=== PATIENT | female | born 1965 | race Caucasian/White ===

== ENCOUNTER 2019-10-13 05:52 | Day surgery (SDC) | payer BC ==
[2019-10-12 16:56] LABS: BASOPHILS % (AUTO) 0.6 % (0-1); EOSINOPHILS # (AUTO) 0.2 X10'3 (0-0.9); EOSINOPHILS % (AUTO) 2.4 % (0-6); HEMATOCRIT 42.1 % (35.0-45.0); HEMOGLOBIN 14.6 g/dl (12.0-16.0); LYMPHOCYTES # (AUTO) 3.1 X10'3 (1.1-4.8); MEAN CORPUSCULAR HEMOGLOBIN 29.4 PG (27.0-31.0); MEAN CORPUSCULAR HGB CONC 34.7 g/dL (33.0-36.5); MEAN CORPUSCULAR VOLUME 84.9 FL (78-98); MONOCYTES # (AUTO) 0.6 X10'3 (0-0.9); MONOCYTES % (AUTO) 7.2 % (2-12); NEUTROPHILS # (AUTO) 3.7 X10'3 (1.8-7.7); NEUTROPHILS % (AUTO) 48.8 % (42-75); PLATELET COUNT 292 X10'3 (140-440); RED BLOOD COUNT 4.96 X10'6 (4.20-5.60); RED CELL DISTRIBUTION WIDTH 13.1 % (11.5-14.5); WHITE BLOOD COUNT 7.7 X10'3 (4.5-11.0)
[2019-10-12 17:06] LABS: ANION GAP 4 (8-16); BLOOD UREA NITROGEN 13 MG/DL (7-18); BUN/CREATININE RATIO 19.7 (6.6-38.0); CHLORIDE 108 MMOL/L (99-107); CREATININE 0.66 MG/DL (0.40-0.90); GLUCOSE 93 MG/DL (70-104); POTASSIUM 3.9 MMOL/L (3.5-5.1); SODIUM 143 MMOL/L (135-145); eGFR > 90 ML/MIN
[2019-10-12 17:09] LABS: PARTIAL THROMBOPLASTIN TIME 28 SECONDS (22-32)
[~2019-10-13] VITALS: Ht 162.6 cm; Wt 114.1 kg
[2019-10-13] VITALS (12 sets, daily range): BP systolic 112–127; BP diastolic 69–81
[~2019-10-13 05:52] MED LIST: CHOL100010 PO; DEXL60CA3 PO; MACROBID PO; METF500T20 PO; TRAM50TA2 PO; ZOC40T PO; ZOF4T PO
[2019-10-13] MEDS ORDERED: diphenhydrAMINE 25mg capsule PO PRN (06:20)
[2019-10-13] MEDS ORDERED: LORazepam 0.5 MG tablet PO PRN (06:20)
[2019-10-13] MEDS ORDERED: normal saline 1,000 ML IV SCH (06:20)
[2019-10-13] MEDS ORDERED: LIDOcaine/PRILOcaine 5gm cream TP ONE (06:20)
[2019-10-13] MEDS ORDERED: KEP500T PO (06:31)
[2019-10-13] MEDS ORDERED: ATOR20TA PO (06:32)
[2019-10-13] MEDS ORDERED: LACO100T2 PO (06:33)
[2019-10-13] MEDS ORDERED: pneumococcal 23-VAL P-sac vacc 25 mcg/0.5ml vial IMVAC ONE (07:30)
[2019-10-13] MEDS ORDERED: nitroGLYCERIN-Tridil 50MG/D5W 250 ML IV ONE (07:38)
[2019-10-13] MEDS ORDERED: midazolam 2 mg/2 ml injection ONE ×2 (07:39→08:34)
[2019-10-13] MEDS ORDERED: iohexol 350 MG/ML 50ML vial IV ONE (07:39)
[2019-10-13] MEDS ORDERED: fentaNYL/PF 50MCG/1 ML 2ML syringe ONE (07:39)
[2019-10-13] MEDS ORDERED: verapamil 2.5 mg/ml inj IV ONE (07:39)
[2019-10-13] MEDS ORDERED: heparin 1,000unit/ml 10ml vial 10 ML ONE (07:39)
[2019-10-13] MEDS ORDERED: LIDOcaine 1% (10mg/ml)w/preservative injection 20ml MDV ONE (07:39)
[2019-10-13] MEDS ORDERED: iohexol 350MG/ML 100ml bottle IV ONE (07:39)
[2019-10-13] MEDS ORDERED: normal saline 1000ml 1,000 ML IV SCH (09:25)
[2019-10-13] MEDS ORDERED: HYDROcodone/acetaminophen 5mg/325mg tablet PO PRN (09:25)
[2019-10-13] MEDS ORDERED: morphine 4 MG/ML inj SYRINge IV PRN (09:25)
[2019-10-13] MEDS ORDERED: HYDROcodone/acetaminophen 10/325mg tab PO PRN (09:25)
== END 2019-10-13 13:50 | disposition home or self-care (01) ==
LOC: SSTAY O 05:52
PROVIDERS: ATTEND Internal Medicine Cardiovascular Disease
DX: R94.39 Abnormal result of other cardiovascular function study (principal); R06.02 Shortness of breath; I25.10 Atherosclerotic heart disease of native coronary artery without angina pectoris; E78.5 Hyperlipidemia, unspecified; G47.30 Sleep apnea, unspecified; E55.9 Vitamin D deficiency, unspecified; D64.9 Anemia, unspecified; K21.9 Gastro-esophageal reflux disease without esophagitis; G40.802 Other epilepsy, not intractable, without status epilepticus; E66.9 Obesity, unspecified; Z68.41 Body mass index [BMI] 40.0-44.9, adult; Z98.890 Other specified postprocedural states; Z90.49 Acquired absence of other specified parts of digestive tract; Z88.2 Allergy status to sulfonamides; Z88.0 Allergy status to penicillin
CPT/HCPCS: 36415; 80048; 85025; 85610; 85730; 93005; 93458; 99152; 99153; C1769; C1894; J1644; J2001; J2250; J3010; Q9967; A5120; A6258; J3490

== ENCOUNTER 2022-06-18 16:59 | Emergency (ER) | payer BC ==
[~2022-06-18] VITALS: Ht 162.6 cm; Wt 116.4 kg
[~2022-06-18 16:59] MED LIST changes: +ATOR20TA PO; -CHOL100010 PO; +KEP500T PO; +LACO100T2 PO; -MACROBID PO; -METF500T20 PO; -TRAM50TA2 PO; -ZOC40T PO; -ZOF4T PO
[2022-06-18 18:44] LABS: BASOPHILS # (AUTO) 0.1 X10'3 (0-0.2); BASOPHILS % (AUTO) 0.7 % (0-1); EOSINOPHILS # (AUTO) 0.2 X10'3 (0-0.9); EOSINOPHILS % (AUTO) 2.3 % (0-6); HEMATOCRIT 43.5 % (35.0-45.0); HEMOGLOBIN 14.8 g/dl (12.0-16.0); LYMPHOCYTES # (AUTO) 2.5 X10'3 (1.1-4.8); LYMPHOCYTES % (AUTO) 36.9 % (21-51); MEAN CORPUSCULAR HEMOGLOBIN 29.7 PG (27.0-31.0); MEAN CORPUSCULAR HGB CONC 34.1 g/dL (33.0-36.5); MEAN CORPUSCULAR VOLUME 87.1 FL (78-98); MEAN PLATELET VOLUME 7.4 FL (7.4-10.4); MONOCYTES # (AUTO) 0.5 X10'3 (0-0.9); NEUTROPHILS # (AUTO) 3.6 X10'3 (1.8-7.7); NEUTROPHILS % (AUTO) 53.1 % (42-75); PLATELET COUNT 274 X10'3 (140-440); RED BLOOD COUNT 4.99 X10'6 (4.20-5.60); RED CELL DISTRIBUTION WIDTH 12.8 % (11.5-14.5); WHITE BLOOD COUNT 6.9 X10'3 (4.5-11.0)
[2022-06-18 19:01] LABS: ANION GAP 4 (8-16); BILIRUBIN,TOTAL 0.6 MG/DL (0.1-1.0); BLOOD UREA NITROGEN 14 MG/DL (7-18); BUN/CREATININE RATIO 18.4 (6.6-38.0); CALCIUM 9.4 MG/DL (8.5-10.1); CHLORIDE 105 MMOL/L (99-107); CREATININE 0.76 MG/DL (0.40-0.90); GLUCOSE 98 MG/DL (70-104); POTASSIUM 3.9 MMOL/L (3.5-5.1); SODIUM 139 MMOL/L (135-145); TOTAL CARBON DIOXIDE 29.9 MMOL/L (24-32); eGFR 79 ML/MIN
[2022-06-18 19:02] LABS: ALANINE AMINOTRANSFERASE 35 U/L (12-78); ALBUMIN/GLOBULIN RATIO 1.1 (1.1-1.5); ALKALINE PHOSPHATASE 86 IU/L (46-116); ASPARTATE AMINO TRANSFERASE 22 U/L (10-37); TOTAL PROTEIN 7.5 G/DL (6.4-8.2)
[2022-06-18 23:06] VITALS: BP 122/81
== END 2022-06-18 23:41 | disposition home or self-care (01) ==
LOC: ER 17:00
DX: R07.9 Chest pain, unspecified (principal); J45.909 Unspecified asthma, uncomplicated; K21.9 Gastro-esophageal reflux disease without esophagitis; Z88.0 Allergy status to penicillin; Z88.1 Allergy status to other antibiotic agents; Z79.899 Other long term (current) drug therapy
CPT/HCPCS: 36415; 71045; 80053; 83880; 84484; 85025; 93005; 99285

== ENCOUNTER 2023-09-29 04:47 | Emergency (ER) | payer BC ==
[~2023-09-29] VITALS: Ht 162.6 cm; Wt 119.9 kg
[2023-09-29 04:59] VITALS: TEMP 98.3
[2023-09-29] MEDS ORDERED: ondansetron 4mg rapidly disintigrating tab PO ONE (05:25)
[2023-09-29] MEDS ORDERED: aspirin 325mg tablet PO ONE (05:25)
[2023-09-29] MEDS ORDERED: mag hydrox/Alum hydrox/simeth 30ml oral suspension PO ONE (05:25)
[2023-09-29] MEDS ORDERED: ESOM40CA54 PO (05:58)
[2023-09-29] MEDS ORDERED: FAMO20TA8 PO (05:58)
[2023-09-29 06:01] LABS: BASOPHILS % (AUTO) 0.5 % (0-1); EOSINOPHILS # (AUTO) 0.1 X10'3 (0-0.9); HEMATOCRIT 41.6 % (35.0-45.0); HEMOGLOBIN 14.4 g/dl (12.0-16.0); LYMPHOCYTES # (AUTO) 2.1 X10'3 (1.1-4.8); LYMPHOCYTES % (AUTO) 33.2 % (21-51); MEAN CORPUSCULAR HGB CONC 34.5 g/dL (33.0-36.5); MEAN CORPUSCULAR VOLUME 86.8 FL (78-98); MEAN PLATELET VOLUME 7.2 FL (7.4-10.4); MONOCYTES # (AUTO) 0.5 X10'3 (0-0.9); MONOCYTES % (AUTO) 7.2 % (2-12); NEUTROPHILS # (AUTO) 3.6 X10'3 (1.8-7.7); NEUTROPHILS % (AUTO) 57.1 % (42-75); PLATELET COUNT 225 X10'3 (140-440); RED BLOOD COUNT 4.79 X10'6 (4.20-5.60); WHITE BLOOD COUNT 6.3 X10'3 (4.5-11.0)
[2023-09-29 06:11] LABS: ALANINE AMINOTRANSFERASE 32 U/L (12-78); ALBUMIN 3.7 G/DL (3.4-5.0); ALBUMIN/GLOBULIN RATIO 1.1 (1.1-1.5); ALKALINE PHOSPHATASE 79 IU/L (46-116); ANION GAP 7 (8-16); ASPARTATE AMINO TRANSFERASE 24 U/L (10-37); BILIRUBIN,TOTAL 0.5 MG/DL (0.1-1.0); BLOOD UREA NITROGEN 16 MG/DL (7-18); BUN/CREATININE RATIO 21.6 (10.0-20.0); CALCIUM 9.1 MG/DL (8.5-10.1); CHLORIDE 106 MMOL/L (99-107); CREATININE 0.74 MG/DL (0.40-0.90); GLUCOSE 124 MG/DL (70-104); POTASSIUM 3.9 MMOL/L (3.5-5.1); SODIUM 140 MMOL/L (135-145); TOTAL CARBON DIOXIDE 27.3 MMOL/L (24-32); TOTAL PROTEIN 7.2 G/DL (6.4-8.2); eCRCL 72 ML/MIN; eGFR 81 ML/MIN
[2023-09-29 06:22] LABS: PRO BRAIN NATRIURETIC PEPTIDE < 30 PG/ML (0-125)
[2023-09-29 07:34] VITALS: BP 108/72; PULSE 70; RESP 16; O2SAT 96
== END 2023-09-29 07:53 | disposition home or self-care (01) ==
LOC: ER 04:48
DX: R07.9 Chest pain, unspecified (principal); R00.0 Tachycardia, unspecified; R13.10 Dysphagia, unspecified
CPT/HCPCS: 36415; 71045; 80053; 83880; 84484; 85025; 93005; 99285

== ENCOUNTER 2025-02-10 18:33 | Emergency (ER) | payer BC ==
[~2025-02-10] VITALS: Ht 162.6 cm; Wt 100.0 kg
[~2025-02-10 18:33] MED LIST changes: -DEXL60CA3 PO; +ESOM40CA66 PO; +FAMO20TA8 PO
--- NOTE | 2025-02-10 19:19 | ELECTROCARDIOGRAPH REPORT ---
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 Arian Hernandez Measurements Intervals [place] Rate: 89 P: 60 MA: 181 QRS: 61 QRSD: 83 T: 106 QT: 421 QTc: 513 Interpretive Statements Sinus rhythm Low voltage with right axis deviation Prolonged QT interval Electronically Signed On 02-11-2025 6:24:[address] Arian Hernandez Please click the below link to view image of tracing.
[2025-02-10 19:26] LABS: BASOPHILS % (AUTO) 0.5 % (0-1); EOSINOPHILS # (AUTO) 0.1 X10'3 (0-0.9); EOSINOPHILS % (AUTO) 1.7 % (0-6); HEMOGLOBIN 13.1 g/dl (12.0-16.0); LYMPHOCYTES # (AUTO) 2.5 X10'3 (1.1-4.8); LYMPHOCYTES % (AUTO) 41.5 % (21-51); MEAN CORPUSCULAR HEMOGLOBIN 29.4 PG (27.0-31.0); MEAN CORPUSCULAR HGB CONC 33.7 g/dL (33.0-36.5); MEAN CORPUSCULAR VOLUME 87.4 FL (78-98); MEAN PLATELET VOLUME 7.3 FL (7.4-10.4); MONOCYTES # (AUTO) 0.5 X10'3 (0-0.9); MONOCYTES % (AUTO) 8.9 % (2-12); NEUTROPHILS # (AUTO) 2.8 X10'3 (1.8-7.7); NEUTROPHILS % (AUTO) 47.4 % (42-75); PLATELET COUNT 254 X10'3 (140-440); RED BLOOD COUNT 4.46 X10'6 (4.20-5.60)
[2025-02-10 19:46] LABS: ALBUMIN 3.3 G/DL (3.4-5.0); ANION GAP 9 (8-16); BLOOD UREA NITROGEN 17 MG/DL (7-18); BUN/CREATININE RATIO 22.1 (10.0-20.0); CALCIUM 8.9 MG/DL (8.5-10.1); CHLORIDE 107 MMOL/L (99-107); CREATININE 0.77 MG/DL (0.40-0.90); GLUCOSE 116 MG/DL (70-104); POTASSIUM 3.9 MMOL/L (3.5-5.1); PRO BRAIN NATRIURETIC PEPTIDE < 30 PG/ML (0-125); SODIUM 144 MMOL/L (135-145); TOTAL CARBON DIOXIDE 27.7 MMOL/L (24-32); eCRCL 68 ML/MIN; eGFR 77 ML/MIN
--- NOTE | 2025-02-10 20:01 | RADIOLOGY REPORT ---
CHEST RADIOGRAPH Indication: CP Technique: Single frontal view of the chest was obtained Comparison: None FINDINGS: The cardiac silhouette is unremarkable. The lungs demonstrate left basilar airspace opacities. The pu lmonary vasculature is prominent. Small left pleural effusion. There is no pneumothorax. IMPRESSION: 1. As above
[2025-02-10 20:39] LABS: LIPASE 30 U/L (16-77)
[2025-02-10 22:15] VITALS: BP 115/72; PULSE 69; RESP 14; O2SAT 96
[2025-02-10] MEDS: azithromycin 250mg tablet PO ONE (22:21)
[2025-02-10 22:49] LABS: BILIRUBIN,URINE NEGATIVE (Neg); CLARITY,URINE CLEAR (Clear); COLOR,URINE YELLOW (Yellow); GLUCOSE, URINE NEGATIVE (Neg); KETONES,URINE NEGATIVE (Neg); LEUKOCYTE ESTERASE ,URINE NEGATIVE (Neg); NITRITES, URINE NEGATIVE (Neg); OCCULT BLOOD,URINE NEGATIVE (Neg); PROTEIN,URINE NEGATIVE (Neg); UROBILINOGEN,URINE 0.2 E.U/dL (0.2-1.0)
[2025-02-10 22:50] LABS: UA COLLECTION TYPE CLN CATCH MIDSTREAM
[2025-02-10] MEDS ORDERED: AZIT-164 PO (23:02)
[2025-02-10 23:03] VITALS: TEMP 96.8
--- NOTE | 2025-02-11 05:16 | Physician Documentation ---
History of Present Illness ~ Chief Complaint: Chest Pain Stated Complaint: CP Time Seen by MD: 18:47 Primary Medical Doctor: willi Mode of Arrival: EMS, Stretcher HPI 59 year old female reports a sudden onset of epigastric pain wrapping around her chest to the back today. She denies fevers, cough, N/V/D, shortness of breath, urinary symptoms. She does have a history of GERD and recently underwent an EGD which was unremarkable. Medication Reconciliation Allergies: Coded Allergies: Penicillins (Verified Allergy, Unknown, RASH, 02/10/25) >5 years ago, rash, no treatment required, PEN-FAST 2 Sulfa (Sulfonamide Antibiotics) (Verified Allergy, Unknown, RASH, 02/10/25) Scheduled Atorvastatin Calcium* (Lipitor*), 1 TABLET PO HS, (Reported) Azithromycin (Zithromax), 1 TAB PO DAILY Esomeprazole Magnesium (Esomeprazole Magnesium), 1 CAP PO DAILY, (Reported) Famotidine (Famotidine), 1 TAB PO BID, (Reported) Lacosamide (Vimpat), 1.5 TAB PO Q12H, (Reported) Levetiracetam (Keppra), 3 TAB PO Q12H, (Reported) Past Medical History Past Medical History: *CARDIOVASCULAR*, High Cholesterol, Asthma, GERD Past Surgical History: no surgical history Smoking Status: Never smoker Alcohol Use: None Drug Use: none Lives with: Spouse Lives In: Home Review of Systems All Other Systems at this time: Reviewed and Negative Physical Exam Vital Signs: RN Vital Signs have been reviewed: Yes, Temperature: 96.8, Source: Oral, Heart Rate: 69, Respiratory Rate: 14, BP: 115/72, Pulse Oximetry: 96, Weight: 100.000 Physical Exam HEENT: PERRL, moist oral mucosa, EOMI Pulmonary: No respiratory distress CTAB Cardiac: RRR, no murmur, rub or gallop GI: nondistended, soft, nontender, no guarding, no rebound MSK: no deformity Skin: w/d/i, no rash Neuro: alert, nonfocal Psych: normal affect Progress Results/Orders Results/Orders Orders - STEPHANIE KAUR MD Chest,Single View (02/10/25 19:17) Monitor (02/10/25 19:17) Saline Lock (02/10/25 19:17) Oxygen (02/10/25 19:17) Completed Orders - STEPHANIE KAUR MD Chest,Single View (02/10/25 19:17) Cbc/Diff (02/10/25 19:17) BMP (02/10/25 19:17) PBNP (02/10/25 19:17) Electrocardiogram (02/10/25 19:17) Hs Troponin I W Calculations (02/10/25 19:17) Hs Troponin I W Calculations (02/10/25 22:17) Urinalysis, Cult If Indicated (02/10/25 20:05) Lipase (02/10/25 18:55) Azithromycin Tablet (Zithromax Tablet) (02/10/25 22:10) Medications Received in ER Medications (Trade) Dose Ordered Sig/Jay Route PRN Reason Start Time Stop Time Status Last Admin Dose Admin (Zithromax tablet) 500 mg ONCE ONCE PO 02/10/25 22:10 02/10/25 22:11 DC 02/10/25 22:21 500 MG Vital Signs 02/10/25 02/10/25 02/10/25 02/10/25 18:55 19:02 19:17 22:15 Temp 96.8 Pulse 88 69 Resp 15 14 B/P (MAP) 145/78 115/72 (86) Pulse Ox 99 99 98 96 O2 Delivery Room Air* Room Air* O2 Flow Rate 0 0 FiO2 21 21 02/10/25 23:03 Temp 96.8 B/P (MAP) Laboratory Tests Test 02/10/25 18:55 02/10/25 22:35 02/10/25 22:39 White Blood Count 6.0 Red Blood Count 4.46 Hemoglobin 13.1 Hematocrit 39.0 Mean Corpuscular Volume 87.4 Mean Corpuscular Hemoglobin 29.4 Mean Corpuscular Hemoglobin Concent 33.7 Red Cell Distribution Width 13.0 Platelet Count 254 Mean Platelet Volume 7.3 L Neutrophils (%) (Auto) 47.4 Lymphocytes (%) (Auto) 41.5 Monocytes (%) (Auto) 8.9 Eosinophils (%) (Auto) 1.7 Basophils (%) (Auto) 0.5 Neutrophils # (Auto) 2.8 Lymphocytes # (Auto) 2.5 Monocytes # (Auto) 0.5 Eosinophils # (Auto) 0.1 Basophils # (Auto) 0.0 CBC Comment Sodium Level 144 Potassium Level 3.9 Chloride Level 107 Carbon Dioxide Level 27.7 Anion Gap 9 Blood Urea Nitrogen 17 Creatinine 0.77 Estimated GFR/1.73 m2 77 BUN/Creatinine Ratio 22.1 H Glucose Level 116 H Calcium Level 8.9 Troponin I High Sensitivity 12 11 Pro-B-Type Natriuretic Peptide < 30 Albumin 3.3 L Lipase 30 Chemistry Comments Urine Specimen Description Cln catch midstream Urine Color Yellow Urine Clarity Clear Urine pH 6.0 Urine Specific Mcneal 1.020 Urine Protein Negative Urine Glucose (UA) Negative Urine Ketones Negative Urine Occult Blood Negative Urine Nitrite Negative Urine Bilirubin Negative Urine Urobilinogen 0.2 Urine Leukocyte Esterase Negative Urine Culture Indicated Not ind Volume Urine Centrifuged 10 ml Urine Comment Troponin I High Sens Percent Delta 8 Troponin I Hi Sens Absolute Change -1 Medical Decision Making Findings 59 year old female with acute epigastric pain/chest pain. Workup was significant for LLL pneumonia. Rx ABx, strict return precautions. Discussed possibility that this may represent PE given her lack of fevers, productive cough, leukocytosis. However her vitals are unremarkable as well. Differential Dx:Considerations: Include: angina, chest wall pain, costochondritis, myocardial infarction, pericarditis, pleuritis, pneumonia, pneumothorax Departure Disposition: 01 HOME / SELF CARE / HOMELESS Impression: Primary Impression: Pneumonia Discharge Instructions: Community-Acquired Pneumonia, Adult Prescriptions Azithromycin (Zithromax) 250 Mg Tablet 1 TAB PO DAILY, #6 TAB azithromycin z pack as directed in packaging Prov: STEPHANIE KAUR MD 02/10/25 Education Educated: Patient Educated regarding: diagnosis, treatment, prognosis, need for follow up Signature Scribe Signature: . Attestation: . STEPHANIE KAUR MD Feb 11, 2025 05:16
== END 2025-02-10 23:05 | disposition home or self-care (01) ==
LOC: ER 18:34
DX: J18.9 Pneumonia, unspecified organism (principal); E78.00 Pure hypercholesterolemia, unspecified; K21.9 Gastro-esophageal reflux disease without esophagitis; J45.909 Unspecified asthma, uncomplicated; Z88.0 Allergy status to penicillin; Z88.2 Allergy status to sulfonamides; Z79.899 Other long term (current) drug therapy
CPT/HCPCS: 36415; 71045; 80048; 81003; 83690; 83880; 84484; 85025; 93005; 99285